=== PATIENT | female | born 2000 | race Hispanic/Latino ===

== ENCOUNTER 2025-05-18 08:21 | Outpatient (CLI) | payer BC ==
[2025-05-18] MEDS ORDERED: Iopamidol 300 61% 100 ML VIAL FS ONE (10:29)
== END 2025-05-18 08:22 | disposition home or self-care (01) ==
LOC: CSHCT 08:21
PROVIDERS: ATTEND Physician Assistant
DX: R79.89 Other specified abnormal findings of blood chemistry (principal)
CPT/HCPCS: 70553; 74170